=== PATIENT | female | born 1950 | race Asian ===

== ENCOUNTER → 2017-08-10 | Outpatient (CLI) | payer MEDICARE ==
[~2017-08-10] MED LIST: ASPI-650 PO; ASPI81TA50 PO; ATOR-2 PO; ATOR40TA PO; CLOP75TA52 PO; EZET10TA18 PO; ISOS30TA8 PO; LIPITOR; LISI-167 PO; LISI5TAB7 PO; LISINOPRIL PO; METO25TA35 PO; METO25TA91 PO; METOPROLOL; NITR0.4T SL; RANO500T2 PO; REGADENOSON 0.4 MG/5 ML SYRINGE ONE
== END | disposition home or self-care (01) ==
LOC: RAD 12:08
PROVIDERS: ATTEND Internal Medicine Cardiovascular Disease
DX: I25.9 Chronic ischemic heart disease, unspecified (principal)
CPT/HCPCS: 78452; 93017; A9502; J2785

== ENCOUNTER 2020-12-30 06:28 | Day surgery (SDC) | payer MEDICARE ==
[~2020-12-30] VITALS: Ht 149.9 cm; Wt 56.0 kg
[~2020-12-30 06:28] MED LIST changes: +ASPI-1026 PO; -ASPI-650 PO; -EZET10TA18 PO; +EZET10TA70 PO; -NITR0.4T SL; +NITR0.4T41 SL; -REGADENOSON 0.4 MG/5 ML SYRINGE ONE
[2020-12-30] MEDS ORDERED: AMLO-150 PO (07:39)
[2020-12-30] MEDS ORDERED: EZET10TA70 PO (07:39)
[2020-12-30 07:43] LABS: BASOPHILS % (AUTO) 1 % (0-1); EOSINOPHILS % (AUTO) 2 % (1-7); LYMPHOCYTES % (AUTO) 26 % (22-44); MEAN CORPUSCULAR HEMOGLOBIN 33.2 pg (27.0-34.8); MEAN CORPUSCULAR HGB CONC 33.7 g/dL (32.4-35.8); MONOCYTES % (AUTO) 11 % (2-9); NEUTROPHILS % (AUTO) 61 % (42-75); PLATELET COUNT 226 x10^3/uL (130-400); RED BLOOD COUNT 4.09 x10^6/uL (3.82-5.3)
[2020-12-30] MEDS ORDERED: MIDAZOLAM 1 MG/ML, 5ML ONE (07:47)
[2020-12-30] MEDS ORDERED: LIDOCAINE 1%, 20ML ONE (07:48)
[2020-12-30] MEDS ORDERED: FENTANYL PF 100 MCG/2ML ONE (07:48)
[2020-12-30] MEDS ORDERED: VERAPAMIL 2.5 MG/ML, 2ML ONE (07:49)
[2020-12-30] MEDS ORDERED: HEPARIN 1,000 UNITS/ML, 10ML ONE (07:49)
[2020-12-30 08:29] LABS: ANION GAP 6 mmol/L (5-15); CHLORIDE 114 mmol/L (98-107); CREATININE 0.67 mg/dL (0.55-1.02)
[2020-12-30] MEDS ORDERED: SODIUM CHLORIDE 0.9% 1,000 ML IV SCH (09:30)
[2020-12-30] MEDS ORDERED: ISOSORBIDE MONONITRATE ER 30 MG TABLET PO SCH (09:30)
[2020-12-30] MEDS ORDERED: NITROGLYCERIN SINGLE TAB 0.4 MG SL PRN (09:30)
[2020-12-30] MEDS ORDERED: ASPIRIN 81 MG TABLET EC PO SCH (09:30)
[2020-12-30] MEDS ORDERED: CLOPIDOGREL 75 MG TABLET PO SCH (09:30)
[2020-12-30] MEDS ORDERED: MORPHINE SULFATE 4 MG/ML, 1ML ONE (09:50)
[2020-12-30] MEDS: MORPHINE SULFATE 4 MG/ML, 1ML IVPush PRN ×2 (09:54→10:21)
[2020-12-30] MEDS ORDERED: ONDANSETRON 2MG/ML, 2ML ONE (10:23)
[2020-12-30] MEDS ORDERED: ONDANSETRON 2MG/ML, 2ML IVPush ONE (10:30)
[2020-12-30] MEDS ORDERED: ATORVASTATIN 80 MG TABLET PO SCH (21:00)
[2020-12-30] MEDS ORDERED: AMLODIPINE 5 MG TABLET PO SCH (21:00)
[2020-12-31] MEDS ORDERED: METOPROLOL SUCCINATE 25 MG TAB.ER.24H PO SCH (09:00)
[2020-12-31] MEDS ORDERED: EZETIMIBE 10 MG TABLET PO SCH (09:00)
[2020-12-31] MEDS ORDERED: LISINOPRIL 5 MG TABLET PO SCH (09:00)
[2020-12-31] MEDS ORDERED: RANOLAZINE 500 MG TAB.ER.12H PO SCH (09:00)
== END 2020-12-30 15:23 | disposition home or self-care (01) ==
LOC: CACL 06:28
PROVIDERS: ATTEND Internal Medicine Cardiovascular Disease
DX: I25.110 Atherosclerotic heart disease of native coronary artery with unstable angina pectoris (principal); I34.0 Nonrheumatic mitral (valve) insufficiency; I10 Essential (primary) hypertension; E78.2 Mixed hyperlipidemia; Z79.899 Other long term (current) drug therapy; Z98.890 Other specified postprocedural states; Z79.82 Long term (current) use of aspirin; Z72.89 Other problems related to lifestyle
CPT/HCPCS: 36415; 80048; 85025; 93457; 99156; 99157; C1769; C1894; J1644; J2250; J2270; J2405; J3010; Q9967; 93456

== ENCOUNTER 2021-01-01 07:17 | Day surgery (SDC) | payer MEDICARE ==
[~2021-01-01] VITALS: Ht 147.3 cm; Wt 54.5 kg
[~2021-01-01 07:17] MED LIST changes: +AMLO-150 PO
[2021-01-01 07:49] VITALS: BP 158/67
[2021-01-01] MEDS ORDERED: METO25TA35 PO (07:57)
[2021-01-01] MEDS ORDERED: RANO10002 PO (07:58)
[2021-01-01] MEDS ORDERED: LISI-167 PO (07:59)
[2021-01-01] MEDS ORDERED: SODIUM CHLORIDE 0.9% 1,000 ML IV SCH (08:00)
[2021-01-01] MEDS ORDERED: PROPOFOL 10 MG/ML, 20ML ONE (11:21)
== END 2021-01-01 10:00 | disposition home or self-care (01) ==
LOC: CACL 07:17
PROVIDERS: ATTEND Internal Medicine Cardiovascular Disease
DX: I34.0 Nonrheumatic mitral (valve) insufficiency (principal); I25.118 Atherosclerotic heart disease of native coronary artery with other forms of angina pectoris; I10 Essential (primary) hypertension; E78.2 Mixed hyperlipidemia; Z20.822 Contact with and (suspected) exposure to COVID-19; Z79.899 Other long term (current) drug therapy; Z87.891 Personal history of nicotine dependence; Z88.5 Allergy status to narcotic agent; Z95.1 Presence of aortocoronary bypass graft
CPT/HCPCS: 87635; 93312; 93321; 93325; J2704

== ENCOUNTER → 2021-03-24 | Outpatient (CLI) | payer MEDICARE ==
[~2021-03-24] MED LIST changes: +ACET325T26 PO; +RANO10002 PO
== END | disposition home or self-care (01) ==
LOC: CVU 15:59
PROVIDERS: ATTEND Internal Medicine Cardiovascular Disease
DX: Z01.810 Encounter for preprocedural cardiovascular examination (principal); I08.8 Other rheumatic multiple valve diseases; I11.9 Hypertensive heart disease without heart failure; R06.02 Shortness of breath; I65.29 Occlusion and stenosis of unspecified carotid artery
CPT/HCPCS: 93306